=== PATIENT | male | born 1955 | race Caucasian/White ===

== ENCOUNTER 2018-10-28 19:42 | Inpatient (IN) ==
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
[2018-10-28 20:48] LABS: Hematocrit 36.9 % (42.0-52.0); Hemoglobin 11.8 gm/dL (13.5-18.0); Mean Cell Volume 90.7 fl (78-100); Mean Platelet Volume 9.6 fl (8-11.3); Neutrophil # 13.1 K/mm3 (1.3-6.0); Neutrophil % 87.3 % (42-75.0); Platelet Count 216 K/mm3 (150-450); Red Blood Count 4.07 M/mm3 (4.7-6.0); Red Cell Distribution Width 14.5 % (11.5-14.0)
[2018-10-28 20:58] LABS: Albumin * 2.4 gm/dl (3.4-5.0); Anion Gap 13.3 mmol/L (6.8-13.8); BUN/Creatinine Ratio 24.3 (9.0-21.6); Bilirubin, Total 1.7 mg/dL (0.0-1.1); Carbon Dioxide 28.4 mmol/L (24-32.6); Potassium 4.7 mmol/L (3.4-4.6); Total Protein 7.1 gm/dL (6.2-8.2)
[2018-10-28 23:49] LABS: Urine Appearance Cloudy (CLEAR); Urine Color Dark Yellow
[2018-10-28 23:50] LABS: Urine Bilirubin 1 mg/dl (NEGATIVE); Urine Blood 250 /ul (NEGATIVE); Urine Ketone Negative (NEGATIVE); Urine Nitrite Negative (NEGATIVE); Urine Protein 100 mg/dL (NEGATIVE); Urine Specific Gravity >=1.030 SP.GR. (1.005-1.030)
[2018-10-28 23:51] LABS: Urine Bacteria TRACE; Urine Fine Granular Cast TRACE /LPF; Urine Hyaline Cast TRACE /LPF
[2018-10-29] MEDS ORDERED: DIATRIZOATE MEGLUMINE, SODIUM 30 ML BTL PO ONE (00:11)
[2018-10-29] MEDS ORDERED: cefTRIAXone SODIUM 1,000 MG/100 ML BAG IV ONE (03:47)
[2018-10-29] MEDS ORDERED: NORMAL SALINE 1,000 ML IV PRN (04:22)
--- NOTE | 2018-10-29 07:09 | ANES ---
Anesthesia Procedure Note Procedure Note: ANESTHESIA PROCEDURE NOTE Date of procedure: 10/29/2018. Time of procedure: 06 50. Performed by: Hung Gallegos CRNA Bottle Tester: None . Preprocedure diagnosis: Sepsis. Difficult IV access. Post procedure diagnosis: Same. Procedure: IV start Indications: Difficult IV access. Findings: 22-gauge Angiocath IV started in patient's right foot EBL: Minimal. Fluids: N/A. Specimen: N/A. Post procedure condition: The patient tolerated the procedure well. No complications were noted. Thank you for this consultation Hung Gallegos CRNA
[2018-10-29] MEDS ORDERED: BISACODYL 10 MG SUPP.RECT RC PRN (07:20)
[2018-10-29] MEDS ORDERED: GLYCERIN 1 SUPP SUPP.RECT RC PRN (07:20)
[2018-10-29 07:57] LABS: Anion Gap 12.5 mmol/L (6.8-13.8); Calcium * 8.4 mg/dL (7.9-10.9); Carbon Dioxide 26.4 mmol/L (24-32.6); Potassium 4.9 mmol/L (3.4-4.6)
[2018-10-29] MEDS: CARVEDILOL 12.5 MG TABLET PO SCH ×2 (08:23→20:21)
[2018-10-29] MEDS: FOLIC ACID 1 MG TABLET PO SCH (08:23)
[2018-10-29] MEDS: FLECAINIDE ACETATE 100 MG TABLET PO SCH ×2 (08:23→20:22)
[2018-10-29] MEDS: DOCUSATE SODIUM 100 MG CAPSULE PO SCH (08:23)
[2018-10-29] MEDS: ACETAMINOPHEN 500 MG TABLET PO PRN ×2 (08:30→20:21)
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
[2018-10-29] MEDS ORDERED: SIMETHICONE 80 MG TAB.CHEW PO PRN (09:06)
[2018-10-29] MEDS: ALBUTEROL SULFATE/IPRATROPIUM 3 ML NEBU IH PRN ×2 (13:12→22:53)
[2018-10-30] MEDS: ACETAMINOPHEN 500 MG TABLET PO PRN (03:39)
[2018-10-30 06:11] LABS: Anion Gap 15.4 mmol/L (6.8-13.8); BUN/Creatinine Ratio 26.4 (9.0-21.6); Calcium * 8.2 mg/dL (7.9-10.9); Carbon Dioxide 23.6 mmol/L (24-32.6); Estimated Creat Clear 47.6
[2018-10-30] MEDS ORDERED: NORMAL SALINE 1,000 ML IV PRN (08:01)
--- NOTE | 2018-10-30 08:05 | PN ---
Subjective - Date and Time Seen Date: 10/30/18 Time: 08:58 Subjective Narrative: Patient reports feeling better than yesterday. He does not feel bloated, and no longer has upper chest discomfort. He feels less congested. He has been able to cough up some phlegm. He is eating without difficulty, and denies postprandial pain. He did notice some swelling in his legs. He feels like he may be able to have a bowel movement later this morning. Objective - Review of Systems Generalized/Overall Review: Denies: Fever Respiratory: Reports: Cough Cardiac: Reports: Edema. Denies: Chest Pain Abdominal: Denies: Vomiting, Diarrhea - Vitals Vitals: Last Vital Signs Temp 36.6 C 10/30/18 06:57 Pulse 79 10/30/18 06:57 Resp 18 10/30/18 06:57 BP 102/65 10/30/18 06:57 Pulse Ox 97 10/30/18 06:57 - Abnormal Lab Findings Abnormal Lab Findings: Abnormal Lab Results 10/29/18 10/30/18 Range/Units 07:08 05:30 Sodium 124 L (132-142) mmol/L Plasma Sodium 124 L (130-142) mmol/L Potassium 5.0 H (3.4-4.6) mmol/L Chloride 90 L (97-106) mmol/L Carbon Dioxide 23.6 L (24-32.6) mmol/L Anion Gap 15.4 H (6.8-13.8) mmol/L BUN 42 H D (6-23) mg/dL Creatinine 1.59 H D (0.4-1.4) mg/dL Est GFR (Non-Af Amer) 47 L D (60-130) mL/min BUN/Creatinine Ratio 26.4 H (9.0-21.6) Random Glucose 113 H (70-110) mg/dL Procalcitonin 2.00 H (0.05-0.50) ng/mL - Exam Constitutional: Present: Alert, Oriented x3, No distress Respiratory: Present: no respiratory distress. Absent: rhonchi Cardiovascular/Chest: Present: regular rate, rhythm Abdomen: Present: soft, nontender, negative Rodríguez sign Extremity: Present: other - tubigrips in place to the knees bilaterally. Absent: lower extremity edema Skin Exam: Present: other - large dressing over mid to lower back with mild strikethrough. Well healed scar visible above the dressing with continuous sutures in place Eye contact: Present: cooperative Assessment/Plan - Problems/Diagnosis (1) Bacteremia Problem: Acute Narrative: 2 blood cultures are positive for staph, sensitivity and speciation to follow. Today is day 3 of Rocephin, and will add doxycycline. He has been afebrile. Initial white blood cell count of 15, repeat pending for the morning. He reports feeling better overall. Likely secondary to pneumonia, but need to include wound infection in the differential. Wound consult pending. He had an injury in august and sustained multiple fractures, and required surgery. This hospitalization is sequela of that injury. He likely has been splinting, and developed pneumonia. (2) Pneumonia Problem: Acute Qualifiers: Pneumonia type: due to unspecified organism Qualified Code(s): J18.1 - Lobar pneumonia, unspecified organism Narrative: Improving. He does not feel as congested, and was able to wean from oxygen. Today is day #3 of rocephin, and adding doxycycline for for staph coverage. Blood cultures positive for staph. Has not been febrile since he was in the ED. (3) Hyponatremia Problem: Acute Narrative: Admission sodium of 126, and was 124 this morning. Will give him one L NS today, and recheck in the morning. His urine was very concentrated on admission, and he may not be excreting water. He does have an acute kidney injury today. If no improvement by tomorrow, will check urine osmolality. (4) Acute renal injury Problem: Acute Narrative: Creatinine of 1.59 this morning, up from 1.09 on admission. He admits to not drinking much fluids, and will give a liter of saline throughout the day. We will need to gently hydrate due to his history of CHF. Will hold his Lasix today. Recheck in a.m. (5) Constipation Problem: Acute Narrative: Continue Dulcolax, Colace, MiraLAX. Discontinue narcotics as they are likely the cause of his constipation. (6) Multiple pelvic fractures Problem: Acute Qualifiers: Encounter type: subsequent encounter Fracture type: closed Fracture alignment: with unstable disruption of pelvic ring Fracture healing: with routine healing Qualified Code(s): S32.811D - Multiple fractures of pelvis with unstable disruption of pelvic ring, subsequent encounter for fracture with routine healing Narrative: He reports doing well without narcotics. Continue pain control with tylenol. Continue working with PT. (7) Fracture of thoracic spine Problem: Acute Qualifiers: Encounter type: subsequent encounter Thoracic vertebra fracture level: unspecified thoracic vertebra Fracture type: closed Fracture morphology: unspecified fracture morphology Fracture healing: with routine healing Qualified Code(s): S22.009D - Unspecified fracture of unspecified thoracic vertebra, subsequent encounter for fracture with routine healing Narrative: Patient has sutures in place from previous surgery for the spinal fractures. He has a bandage over top, which has some strikethrough. Mariah Edin has been consulted for an appropriate dressing for his wound. He has a follow up appt n ext week with his surgeon. I spoke with his nurse at [facility], who had been using AUDRA and a telfa dressing. He saw his surgeon a couple of weeks ago, and his incision was still inflamed, which is likely why his sutures are still in place. (8) Multiple rib fractures involving four or more ribs Problem: Acute (9) Paroxysmal a-fib Problem: Chronic Narrative: Currently in sinus rhythm. (10) CHF (congestive heart failure) Problem: Chronic Qualifiers: Heart failure type: combined systolic and diastolic Heart failure chronicity: chronic Qualified Code(s): I50.42 - Chronic combined systolic (congestive) and diastolic (congestive) heart failure Narrative: Continue coreg. Holding lasix for CAYDEN. Monitor closely for signs of fluid overload. (11) Abnormal US (ultrasound) of abdomen Problem: Acute Narrative: Ultrasound of his GB showed "GALLSTONES WITH GALLBLADDER WALL THICKENING AND POSITIVE RODRÍGUEZ SIGN WITHOUT OBVIOUS PERICHOLECYSTIC FLUID. THESE FINDINGS ARE CONCERNING FOR ACUTE CHOLECYSTITIS." He denies RUQ pain or postprandial pain. He had some upper throat discomfort yesterday, but that is no longer present. These findings are likely incidental. No further intervention needed,.
[2018-10-30] MEDS: FUROSEMIDE 20 MG TABLET PO SCH (08:10)
[2018-10-30] MEDS: CARVEDILOL 12.5 MG TABLET PO SCH ×2 (08:29→21:13)
[2018-10-30] MEDS: FLECAINIDE ACETATE 100 MG TABLET PO SCH ×2 (08:30→21:14)
[2018-10-30] MEDS: DOXYCYCLINE HYCLATE 100 MG TABLET PO SCH ×2 (08:30→21:14)
[2018-10-30] MEDS: DOCUSATE SODIUM 100 MG CAPSULE PO SCH (08:30)
[2018-10-30] MEDS: FOLIC ACID 1 MG TABLET PO SCH (08:31)
[2018-10-30] MEDS: POLYETHYLENE GLYCOL 3350 119 GM BTL PO PRN (08:32)
--- NOTE | 2018-10-30 14:29 | CONS ---
[facility] - General Date of Service: 10/30/18 Source: patient, family Exam Limitations: no limitations - History of Present Illness Initial Comments: Patient is a 63 year old male, recently admitted to the hospital for treatment of pneumonia. 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 He was treated at the [facility], and recently returned to the [facility] to complete healing. This consult is in regards to the incision of the thoracic spine. There is continued drainage and redness present. The patient has pain throughout. Current dressings include dry gauze. The patient denies prior non-healing wounds. Timing/Duration: constant Allergies/Adverse Reactions: Allergies No Known Allergies Allergy (Verified 10/29/18 07:31) Home Medications: Home Medications Medication Instructions Recorded Last Taken Acetaminophen 3 tab PO TID 10/25/18 Unknown Acetaminophen [Tylenol] 500 mg PO TID PRN 10/25/18 Unknown Allopurinol [Zyloprim] 300 mg PO DAILY 10/25/18 Unknown Aspirin [Aspirin EC] 81 mg PO DAILY 10/25/18 Unknown Atorvastatin Calcium [Lipitor] 20 mg PO HS 10/25/18 Unknown Bisacodyl [Dulcolax Suppository] 10 mg RC DAILY PRN 10/25/18 Unknown Calcium Carbonate [Tums] 1 - 2 tab PO QID PRN 10/25/18 Unknown Carvedilol [Coreg] 12.5 mg PO BID 10/25/18 Unknown Docusate Sodium 100 mg PO DAILY 10/25/18 Unknown Flecainide Acetate 100 mg PO BID 10/25/18 Unknown Folic Acid 1 mg PO DAILY 10/25/18 Unknown Furosemide 60 mg PO DAILY 10/25/18 Unknown Glycerin [Glycerin Adult 1 supp RC DAILY PRN 10/25/18 Unknown Suppository] HYDROmorphone HCL [Dilaudid] 1 - 2 tab PO Q6H PRN 10/25/18 Unknown Ipratropium/Albuterol Sulfate 3 ml INHALATION Q6H PRN 10/25/18 Unknown [Iprat-Albut 0.5-3(2.5) mg/3 ml] Polyethylene Glycol 3350 [Miralax] 17 gm PO DAILY PRN 10/25/18 Unknown Potassium Chloride [Klor-Con 10] 10 meq PO DAILY 10/25/18 Unknown Ciprofloxacin HCl [Cipro] 500 mg PO BID #20 tab 10/26/18 Unknown Procedures Continuous invasive mechanical ventilation for less than 96 consecutive hours (04/07/11) Dilation of Urethra, Via Natural or Artificial Opening Endoscopic (02/23/16) Drainage of Bladder with Drainage Device, Via Natural or Artificial Opening (02/23/16) Drainage of Bladder with Drainage Device, Via Natural or Artificial Opening Endoscopic (05/31/16) Drainage of Peritoneal Cavity, Percutaneous Approach, Diagnostic (05/31/16) Drainage of Prostate, Percutaneous Approach, Diagnostic (02/23/16) Fluoroscopy of Kidneys, Ureters and Bladder (02/23/16) Insertion of endotracheal tube (04/07/11) Insertion of intraocular lens prosthesis at time of cataract extraction, one- stage (08/08/13) Phacoemulsification and aspiration of cataract (08/08/13) Medications - Medications Current Medications: Current Medications Acetaminophen (Tylenol) 500 mg PO TID PRN PRN Reason: Pain Stop: 11/28/18 07:21 Last Admin: 10/30/18 03:39 Dose: 500 mg Documented by: Albuterol/Ipratropium (Duoneb 2.5-0.5mg/3ml Soln) 3 ml IH Q6H PRN PRN Reason: Wheezing Stop: 11/28/18 07:21 Last Admin: 10/29/18 22:53 Dose: 3 ml Documented by: Carvedilol (Coreg) 12.5 mg PO BID [facility] Stop: 11/28/18 09:01 Last Admin: 10/30/18 08:29 Dose: 12.5 mg Documented by: Docusate Sodium (Colace) 100 mg PO DAILY [facility] Stop: 11/28/18 09:01 Last Admin: 10/30/18 08:30 Dose: 100 mg Documented by: Doxycycline Hyclate (Vibratab) 100 mg PO BID [facility]; Protocol Stop: 11/04/18 09:01 Last Admin: 10/30/18 08:30 Dose: 100 mg Documented by: Flecainide Acetate (Tambocor) 100 mg PO BID [facility] Stop: 11/28/18 09:01 Last Admin: 10/30/18 08:30 Dose: 100 mg Documented by: Folic Acid (Folic Acid) 1 mg PO DAILY [facility] Stop: 11/28/18 09:01 Last Admin: 10/30/18 08:31 Dose: 1 mg Documented by: Furosemide (Lasix) 60 mg PO DAILY [facility] Stop: 11/29/18 09:01 Last Admin: 10/30/18 08:10 Dose: Not Given Documented by: Sodium Chloride (Sodium Chloride 0.9%) 1,000 mls @ 999 mls/hr IV .Q1H1M PRN PRN Reason: HYDRATION Last Infusion: 10/29/18 08:37 Dose: Infused Documented by: Ceftriaxone Sodium 1,000 mg/ (Dextrose/Water) 100 mls @ 200 mls/hr IV Q24H [facility]; Protocol Stop: 11/29/18 07:01 Last Admin: 10/30/18 07:36 Dose: 200 mls/hr Documented by: Sodium Chloride (Sodium Chloride 0.9%) 1,000 mls @ 140 mls/hr IV .Q7H9M PRN PRN Reason: hyponatremia Last Admin: 10/30/18 08:28 Dose: 140 mls/hr Documented by: Polyethylene Glycol (Miralax) 17 gm PO DAILY PRN PRN Reason: Constipation Last Admin: 10/30/18 08:32 Dose: 17 gm Documented by: Simethicone (Mylicon Chewable Tablets) 80 mg PO QID PRN PRN Reason: Indigestion Stop: 11/28/18 09:07 Last Admin: 10/29/18 11:28 Dose: 80 mg Documented by: Review of Systems - Review of Systems Generalized/Overall Review: Present: Weakness Respiratory: Present: Cough, Shortness of Breath, Wheezing Cardiac: Absent: Chest Pain Abdominal: Absent: Nausea Musculoskeletal: Absent: Back Pain Skin: Present: Lesions Physical Examination - Exam Vital Signs: Vital Signs - Last Taken Temp 36.4 C 10/30/18 11:05 Pulse 70 10/30/18 11:05 Resp 18 10/30/18 11:05 BP 97/61 10/30/18 11:05 Pulse Ox 92 L 10/30/18 11:05 O2 Oxygen Delivery Method Room Air Constitutional: Present: Alert, Oriented x3, Cooperative, No distress ENT Exam: Present: hearing grossly normal Respiratory: Present: no respiratory distress Skin Exam: Present: normal color, warm/dry, other - there are sutures present in the mid back. these are intact, with wound edges appropriated nicely. there are several areas of minimal drainage from the site, with purulent materal at the distal aspect. Eye contact: Present: cooperative Thoughts: Present: normal thought pattern - Results and Findings: Lab/Microbiology results last 24 hrs: Abnormal/Pending Laboratory Last 24 HRS 10/30/18 05:30 Sodium 124 L Plasma Sodium 124 L Potassium 5.0 H Chloride 90 L Carbon Dioxide 23.6 L Anion Gap 15.4 H BUN 42 H D Creatinine 1.59 H D Est GFR (Non-Af Amer) 47 L D BUN/Creatinine Ratio 26.4 H Random Glucose 113 H Culture 10/29/18 04:00 Blood Culture - Preliminary Blood Staphylococcus Species 10/28/18 20:30 Blood Culture - Preliminary Blood Staphylococcus Species 10/29/18 10:09 - Final Nares MRSA Negative - Assessments/Findings (1) Fracture of thoracic spine Diagnosis(s): Due to the drainage from the incision, recommend placing Aquacel Ag over the sutures. This will be covered with gauze and secured with tape. The dressing can be changed daily. Continue to monitor for signs of infection. The purulent material at the distal aspect is minimal, however concerning based on the recent culture results. Problem: Chronic Qualifiers: Encounter type: subsequent encounter Thoracic vertebra fracture level: unspecified thoracic vertebra Fracture type: closed Fracture morphology: unspecified fracture morphology Fracture healing: with routine healing Qualified Code(s): S22.009D - Unspecified fracture of unspecified thoracic vertebra, subsequent encounter for fracture with routine healing (2) Incisional infection Problem: Acute
[2018-10-30] MEDS: ALBUTEROL SULFATE/IPRATROPIUM 3 ML NEBU IH PRN (21:30)
[2018-10-31] MEDS ORDERED: hydrOXYzine HCL 25 MG TABLET PO ONE (01:10)
[2018-10-31] MEDS: ALBUTEROL SULFATE/IPRATROPIUM 3 ML NEBU IH PRN (04:23)
[2018-10-31 05:38] LABS: Calcium * 8.2 mg/dL (7.9-10.9); Carbon Dioxide 24.9 mmol/L (24-32.6); Potassium 4.9 mmol/L (3.4-4.6)
[2018-10-31 05:41] LABS: Hematocrit 31.8 % (42.0-52.0); Hemoglobin 10.2 gm/dL (13.5-18.0); Mean Cell Volume 88.1 fl (78-100); Mean Corpuscular Hemoglobin 28.3 pg (27-31); Mean Corpuscular Hgb Conc 32.1 g/dl (32-36); Mean Platelet Volume 9.9 fl (8-11.3); Neutrophil # 14.8 K/mm3 (1.3-6.0); Neutrophil % 88.2 % (42-75.0); Platelet Count 221 K/mm3 (150-450); Red Blood Count 3.61 M/mm3 (4.7-6.0); White Blood Count 16.8 K/mm3 (4.0-10.5)
[2018-10-31] MEDS: VANCOMYCIN HCL 1 GM in DEXTROSE 5 % IN WATER 250 ML IV SCH ×4 (08:06→20:40)
[2018-10-31] MEDS: DOXYCYCLINE HYCLATE 100 MG TABLET PO SCH ×2 (08:10→20:53)
[2018-10-31] MEDS: FUROSEMIDE 20 MG TABLET PO SCH (08:10)
[2018-10-31] MEDS: FOLIC ACID 1 MG TABLET PO SCH (08:11)
[2018-10-31] MEDS: DOCUSATE SODIUM 100 MG CAPSULE PO SCH (08:11)
[2018-10-31] MEDS: CARVEDILOL 12.5 MG TABLET PO SCH ×2 (08:11→20:50)
[2018-10-31] MEDS: FLECAINIDE ACETATE 100 MG TABLET PO SCH ×2 (08:11→20:50)
--- NOTE | 2018-10-31 10:11 | PN ---
Subjective - Date and Time Seen Date: 10/31/18 Time: 10:10 Subjective Narrative: Patient reports continued cough, and the cough is interfering with sleeping. His cough is productive. I got a call from nursing overnight stating he was somewhat anxious due to his cough, and he received hydroxyzine, and he believes this may have helped him sleep. He denies back pain. He did have a bowel movement yesterday. He reports feeling poorly overall due to his cough, and the mucinex was only minimally helpful. He was restarted on nasal cannula overnight for decreased oxygen readings via pulse ox. Objective - Review of Systems Generalized/Overall Review: Denies: Fever Respiratory: Reports: Cough. Denies: Shortness of Breath Cardiac: Reports: Edema. Denies: Chest Pain Abdominal: Denies: Vomiting, Abdominal Pain, Constipation Musculoskeletal Complaints: Denies: Back Pain - Vitals Vitals: Last Vital Signs Temp 36.6 C 10/31/18 07:16 Pulse 76 10/31/18 08:11 Resp 20 10/31/18 07:16 BP 112/72 10/31/18 08:11 Pulse Ox 95 10/31/18 07:16 - Abnormal Lab Findings Abnormal Lab Findings: Abnormal Lab Results 10/31/18 10/31/18 Range/Units 05:25 05:25 WBC 16.8 H (4.0-10.5) K/mm3 RBC 3.61 L (4.7-6.0) M/mm3 Hgb 10.2 L (13.5-18.0) gm/dL Hct 31.8 L (42.0-52.0) % RDW 15.0 H (11.5-14.0) % Immature Gran % (Auto) 0.80 H (0.001-0.429) % Immature Gran # (Auto) 0.13 H (0.000-0.0310) K/mm3 Neutrophils % 88.2 H (42-75.0) % Lymphocytes % 4.8 L (20-51) % Neutrophils # 14.8 H (1.3-6.0) K/mm3 Lymphocytes # 0.81 L (1.5-3.5) k/mm3 Sodium 123 L (132-142) mmol/L Plasma Sodium 123 L (130-142) mmol/L Potassium 4.9 H (3.4-4.6) mmol/L Chloride 90 L (97-106) mmol/L BUN 54 H (6-23) mg/dL Est GFR (Non-Af Amer) 57 L D (60-130) mL/min BUN/Creatinine Ratio 40.0 H (9.0-21.6) - Exam Constitutional: Present: Alert, Oriented x3, No distress - appears uncomfortable Respiratory: Present: lungs clear, no respiratory distress Cardiovascular/Chest: Present: regular rate, rhythm Abdomen: Present: soft, nontender Extremity: Present: other - tubigrips in place. Absent: lower extremity edema Skin Exam: Present: other - mild thick purulent drainage of incision in the regions of T10-T12, and L2-L3 Assessment/Plan - Problems/Diagnosis (1) MRSA bacteremia Problem: Acute Narrative: Cultures from 10/28/18 are growing MRSA. vancomycin added this morning. He does not appear acutely ill, making MRSA pneumonia unlikely. This infection is probably coming from his surgical incision. Surgery was done in August for thoracic fractures. MRI of the thoracic and lumbar spine pending to assess for osteomyelitis. Should this be positive, he will require transfer for possible surgery. (2) Pneumonia Problem: Acute Qualifiers: Pneumonia type: due to unspecified organism Qualified Code(s): J18.1 - Lobar pneumonia, unspecified organism Narrative: He continues to have a cough, and is requiring oxygen. Repeat chest x-ray pending. White blood cell count did increase slightly from admission, which may be from pneumonia or could be from his skin infection. We will continue Rocephin and doxycycline for now. Continue Mucinex. (3) Hyponatremia Problem: Acute Narrative: His sodium decreased from 124-123, even after a liter of fluids yesterday. Will administer 3% saline, and recheck BMP this afternoon. Renal function did recover yesterday. (4) Incisional infection Problem: Acute Narrative: Vancomycin started this morning. Has also been on rocephin and doxycycline, but WBC increased slightly. (5) Acute renal injury Problem: Resolved Narrative: Creatinine and GFR improved to 1.35 and 57, respectively. (6) Constipation Problem: Chronic Narrative: Not currently present. He was able to have a bowel movement yesterday. We will need to watch for constipation, that this was his presenting complaint. Likely secondary to narcotic use for his multiple spinal fractures. (7) Fracture of thoracic spine Problem: Acute Qualifiers: Encounter type: subsequent encounter Thoracic vertebra fracture level: unspecified thoracic vertebra Fracture type: closed Fracture morphology: unspecified fracture morphology Fracture healing: with routine healing Qualified Code(s): S22.009D - Unspecified fracture of unspecified thoracic vertebra, subsequent encounter for fracture with routine healing Narrative: Patient had surgical repair of thoracic fractures after a fall from a truck back in August. Surgery was done in . He still has sutures in place, and conversation with his nurse at [facility] indicated there was some concern for continued wound drainage at his last visit. There is concern for osteomyelitis given his bacteremia. MRI of the T and L-spine pending. (8) Multiple pelvic fractures Problem: Acute Qualifiers: Encounter type: subsequent encounter Fracture type: closed Fracture alignment: with unstable disruption of pelvic ring Fracture healing: with routine healing Qualified Code(s): S32.811D - Multiple fractures of pelvis with unstable disruption of pelvic ring, subsequent encounter for fracture with routine healing (9) Multiple rib fractures involving four or more ribs Problem: Acute (10) Paroxysmal a-fib Problem: Chronic Narrative: NSR on admission EKG. (11) CHF (congestive heart failure) Problem: Chronic Qualifiers: Heart failure type: combined systolic and diastolic Heart failure chronicity: chronic Qualified Code(s): I50.42 - Chronic combined systolic (congestive) and diastolic (congestive) heart failure Narrative: Tolerated 1 L NS given throughout the day yesterday. No crackles or edema on this morning's exam. (12) Abnormal US (ultrasound) of abdomen Problem: Acute Narrative: He denies symptoms of cholecystitis. The findings on his ultrasound are likely incidental.
[2018-10-31] MEDS: SODIUM CHLORIDE 3 % 500 ML IV SCH (10:28)
[2018-10-31] MEDS: ACETAMINOPHEN 500 MG TABLET PO PRN ×2 (13:53→20:50)
[2018-10-31] MEDS ORDERED: BENZONATATE 100 MG CAPSULE PO PRN (14:35)
[2018-10-31 14:46] LABS: Calcium * 8.3 mg/dL (7.9-10.9); Carbon Dioxide 22.8 mmol/L (24-32.6); Estimated Creat Clear 61.5; Potassium 4.8 mmol/L (3.4-4.6)
[2018-11-01 05:46] LABS: Hematocrit 31.9 % (42.0-52.0); Hemoglobin 10.4 gm/dL (13.5-18.0); Mean Cell Volume 87.6 fl (78-100); Mean Corpuscular Hemoglobin 28.6 pg (27-31); Mean Corpuscular Hgb Conc 32.6 g/dl (32-36); Mean Platelet Volume 9.9 fl (8-11.3); Neutrophil # 12.2 K/mm3 (1.3-6.0); Neutrophil % 88.3 % (42-75.0); Platelet Count 234 K/mm3 (150-450); Red Blood Count 3.64 M/mm3 (4.7-6.0); Red Cell Distribution Width 14.9 % (11.5-14.0); White Blood Count 13.8 K/mm3 (4.0-10.5)
[2018-11-01 05:59] LABS: Anion Gap 12.9 mmol/L (6.8-13.8); BUN/Creatinine Ratio 49.6 (9.0-21.6); Bilirubin, Total 1.4 mg/dL (0.0-1.1); Ca. Corrected For Albumin 9.5 mg/dL (8.4-10.2); Calcium * 8.2 mg/dL (7.9-10.9); Carbon Dioxide 24.7 mmol/L (24-32.6); Potassium 4.6 mmol/L (3.4-4.6); Total Protein 6.3 gm/dL (6.2-8.2)
--- NOTE | 2018-11-01 09:20 | PN ---
Subjective - Date and Time Seen Date: 11/01/18 Time: 09:20 Subjective Narrative: He continue to have the cough, and feels like he is getting weaker overall. Objective - Vitals Vitals: Last Vital Signs Temp 36.6 C 11/01/18 06:00 Pulse 72 11/01/18 06:00 Resp 18 11/01/18 06:00 BP 130/80 11/01/18 06:00 Pulse Ox 96 11/01/18 06:00 - Abnormal Lab Findings Abnormal Lab Findings: Abnormal Lab Results 10/31/18 11/01/18 11/01/18 Range/Units 14:16 05:25 05:25 WBC 13.8 H (4.0-10.5) K/mm3 RBC 3.64 L (4.7-6.0) M/mm3 Hgb 10.4 L (13.5-18.0) gm/dL Hct 31.9 L (42.0-52.0) % RDW 14.9 H (11.5-14.0) % Immature Gran % (Auto) 1.00 H (0.001-0.429) % Immature Gran # (Auto) 0.14 H (0.000-0.0310) K/mm3 Neutrophils % 88.3 H (42-75.0) % Lymphocytes % 5.0 L (20-51) % Neutrophils # 12.2 H (1.3-6.0) K/mm3 Lymphocytes # 0.69 L (1.5-3.5) k/mm3 Sodium 123 L 123 L (132-142) mmol/L Plasma Sodium 124 L 123 L (130-142) mmol/L Potassium 4.8 H (3.4-4.6) mmol/L Chloride 89 L 90 L (97-106) mmol/L Carbon Dioxide 22.8 L (24-32.6) mmol/L Anion Gap 16.0 H (6.8-13.8) mmol/L BUN 59 H 57 H (6-23) mg/dL BUN/Creatinine Ratio 48.0 H 49.6 H (9.0-21.6) Random Glucose 132 H (70-110) mg/dL Total Bilirubin 1.4 H (0.0-1.1) mg/dL AST 63 H (0-48) U/L Alkaline Phosphatase 221 H (50-170) U/L Albumin 2.0 L (3.4-5.0) gm/dl Assessment/Plan - Problems/Diagnosis (1) MRSA bacteremia Problem: Acute (2) Pneumonia Problem: Acute Qualifiers: Pneumonia type: due to unspecified organism Qualified Code(s): J18.1 - Lobar pneumonia, unspecified organism (3) Hyponatremia Problem: Acute (4) Incisional infection Problem: Acute (5) Acute renal injury Problem: Resolved (6) Constipation Problem: Chronic (7) Fracture of thoracic spine Problem: Acute Qualifiers: Encounter type: subsequent encounter Thoracic vertebra fracture level: unspecified thoracic vertebra Fracture type: closed Fracture morphology: unspecified fracture morphology Fracture healing: with routine healing Qualified Code(s): S22.009D - Unspecified fracture of unspecified thoracic vertebra, subsequent encounter for fracture with routine healing (8) Multiple pelvic fractures Problem: Acute Qualifiers: Encounter type: subsequent encounter Fracture type: closed Fracture alignment: with unstable disruption of pelvic ring Fracture healing: with routine healing Qualified Code(s): S32.811D - Multiple fractures of pelvis with unstable disruption of pelvic ring, subsequent encounter for fracture with routine healing (9) Multiple rib fractures involving four or more ribs Problem: Acute (10) Paroxysmal a-fib Problem: Chronic (11) CHF (congestive heart failure) Problem: Chronic Qualifiers: Heart failure type: combined systolic and diastolic Heart failure chronicity: chronic Qualified Code(s): I50.42 - Chronic combined systolic (congestive) and diastolic (congestive) heart failure (12) Abnormal US (ultrasound) of abdomen Problem: Acute
[2018-11-01] MEDS: predniSONE 20 MG TABLET PO SCH (10:25)
[2018-11-01] MEDS: FUROSEMIDE 20 MG TABLET PO SCH (10:25)
[2018-11-01] MEDS: DOCUSATE SODIUM 100 MG CAPSULE PO SCH (10:26)
[2018-11-01] MEDS: FOLIC ACID 1 MG TABLET PO SCH (10:26)
[2018-11-01] MEDS: FLECAINIDE ACETATE 100 MG TABLET PO SCH ×2 (10:26→20:17)
[2018-11-01] MEDS: CARVEDILOL 12.5 MG TABLET PO SCH ×2 (10:27→20:16)
[2018-11-01] MEDS: DOXYCYCLINE HYCLATE 100 MG TABLET PO SCH ×2 (10:27→20:18)
[2018-11-01] MEDS: ENOXAPARIN SODIUM 40 MG/0.4 ML SYRG SC SCH (10:28)
--- NOTE | 2018-11-01 10:48 | DS ---
Transfer Discharge Summary - Diagnosis(s)/Problems (1) MRSA bacteremia Narrative: Blood cultures on admission were positive for MRSA, and vancomycin was subsequently started. Unfortunately, patient has very difficult IV access, and access was lost overnight of 10/31. The source is felt to be his spinal in cision. MRI of his T and L spine read "Questionable abnormal signal enhancement in the L5 vertebral body; however, no other abnormal signal seen in this vertebral body. This may be artifactual. Edematous signal at T11-T12 identified; however, there is no abnormal contrast enhancement in this region, therefore I believe this is degenerative in nature. Soft tissues are unremarkable." Problem: Acute (2) Surgical wound infection Narrative: He had thoracic spine fracture surgically repaired at the [facility] in August 2018, but these notes are not available to me. Per his nurse at the care center where he is currently residing, there was concern for wound dehiscence, and sutures are still in place. He has mild purulent drainage in the regions of T10-T12, and L2-L3. He denies pain in the region. He was given rocephin initially for the pneumonia, which started 10/28. Doxycyline was added 10/30, and vancomycin for the positive blood culture was added 10/31. Wound care was consulted, who recommended covering the sutures with Aquacel Ag. MRI of his T and L spine were done, which read "FINDINGS: No abnormal signal within the cord. Conus ends in normal anatomic fashion. Extensive surgical hardware limits evaluation of the spine. Questionable abnormal signal enhancement in the L5 vertebral body; however, no other abnormal signal seen in this vertebral body. This may be artifactual. If concern persists, consider 3 phase nuclear medicine bone scan with Ceretec study. Surgical hardware at L5-S1 limits evaluation. Multilevel disc bulging and osteophyte complex causing central canal and neural foraminal stenosis which is mild at multiple levels. No abnormal contrast enhancement otherwise. No fracture or dislocation appreciated. Edematous signal at T11-T12 identified; however, there is no abnormal contrast enhancement in this region, therefore I believe this is degenerative in nature. Soft tissues are unremarkable." ESR mildly elevated at 47. He was no longer febrile after arrival on the floor. Vitals were within normal limits. Problem: Chronic (3) Pneumonia Narrative: Patient had a cough throughout his stay, and was initially febrile while in the ED. CXR showed atelectasis or scarring in his bases without definite infiltrate. WBC of 15.0, improved to 13.8, procalcitonin of 2.0. Given his clinical presentation, he was treated with rocephin and doxycycline. He initially did require up to 2L O2 via NC, and was weaned, but again used oxygen overnight of 10/31/18. On 11/01, chest CT showed "No definite pulmonary consolidation. Bilateral basilar predominant dependent/compressive atelectasis. Potential pneumonia would be difficult in exclude entirely." He was started on 60 mg prednisone on 11/01. His cough improved by 11/02. Doxycycline and rocephin discontinued 11/03 for completion of treatment. Problem: Acute (4) Hyponatremia Narrative: Initial sodium level of 126. He was given one L NS, and repeat was 125. He was then started on 3% hypertonic saline, and his sodium decreased to 123. Oral salt tablets were started. His sodium level improved to 130 on 11/02, and the 3% saline was stopped, continuing salt tabs. Problem: Acute (5) Acute renal injury Narrative: On 10/30, his creatinine increased from 1.08 to 1.59. It decreased the next day, and remained normal for the rest of his stay. Problem: Resolved (6) Constipation Narrative: Patient reported constipation prior to admission, worsened with pain medications. These were held during his stay, and he did not have problems with bowel movements. Problem: Chronic (7) Fracture of thoracic spine Narrative: Patient suffered a traumatic injury in August 2018, sustaining multiple fractures. His T spine fractures required surgical repair. He still has sutures in place, and discussion with his nurse at [facility] revealed there was recent concern for wound dehiscence. Problem: Chronic (8) Multiple pelvic fractures Narrative: Patient reports having a 20% weight bearing restriction on his right leg. He states he doesn't currently feel pain when he steps on that leg, but is afraid of reversing his progress. Problem: Chronic (9) Multiple rib fractures involving four or more ribs Problem: Chronic (10) Paroxysmal a-fib Narrative: He was in normal sinus rhythm. Problem: Chronic (11) CHF (congestive heart failure) Narrative: Gentle fluids were administered for his hyponatremia, and he did not have signs of fluid overload. Continued home coreg. Problem: Chronic (12) Abnormal US (ultrasound) of abdomen Narrative: He had a CT of his abdomen in the ED, which showed "calcified gallstones with questionable gallbladder wall thickening." Subsequent US showed "gallstones with gallbladder wall thickening and positive Rodríguez sign without obvious pericholecystic fluid. Findings concerning for acute cholecystitis." These findings were felt to be incidental. He did not have RUQ tenderness on exam, and did not have postprandial pain. AST, ALT normal. His alk phos was elevated, which is likely secondary to MSK surgery. Problem: Chronic - Course Description of Stay: Patient is a resident of [facility] due to injuries sustained in a fall from a truck in August 2018, requiring surgical repair of his spine. He was initially admitted for constipation, but had respiratory complaints. He had a cough, was febrile, and required oxygen, which he does not use at baseline. He was treated for pneumonia. He also has drainage of the incision of his back, and blood cultures were positive for MRSA. His case was discussed with the infectious disease specialist at [facility], who recommended a higher level of care due to the MRSA bacteremia. There was no clear osteomyelitis on MRI, and with his ESR of 47, it is less likely. He also had hyponatremia of unknown source, which did not improve with one L NS, and 3% hypertonic solution was started, again without improvement. Oral salt tablets were started. Unfortunately IV access was lost overnight 10/31, regained around noon 11/01. His sodium improved to 130 on 11/02, and the 3% was stopped.. Patient's WBC count improved, but his cough did not for several days. CXR did not show definite infiltrate, and CT chest was equivocal. He was weaned off oxygen, but again required 2L via NC on the night of 10/30. He was again weaned by 11/01. Of note, there was significant difficulty with IV access. He had peripheral access in his right foot for the first few days of admission, but this was lost overnight on 10/31. He has not yet had negative blood cultures, and peripheral access was again established by anesthesia. He completed 5 days of treatment with rocephin, and his final dose of doxycycline was scheduled to be given the night of transfer to [facility]. A bed became available the afternoon of 11/03/18, and he was transferred by ground to the [facility] Procedures Performed: none - Results and Findings Results and Findings: Laboratory Results - last 24 hr 10/31/18 11/01/18 11/01/18 14:16 05:25 05:25 WBC 13.8 H RBC 3.64 L Hgb 10.4 L Hct 31.9 L MCV 87.6 MCH 28.6 MCHC 32.6 RDW 14.9 H Plt Count 234 MPV 9.9 Immature Gran % (Auto) 1.00 H Immature Gran # (Auto) 0.14 H Neutrophils % 88.3 H Lymphocytes % 5.0 L Monocytes % 5.3 Eosinophils % 0.3 Basophils % 0.1 Nucleated RBC % 0.0 Neutrophils # 12.2 H Lymphocytes # 0.69 L Monocytes # 0.7 Eosinophils # 0.0 Absolute Basophils 0.0 ESR Sodium 123 L 123 L Plasma Sodium 124 L 123 L Potassium 4.8 H 4.6 Chloride 89 L 90 L Carbon Dioxide 22.8 L 24.7 Anion Gap 16.0 H 12.9 BUN 59 H 57 H Creatinine 1.23 1.15 Est GFR (Non-Af Amer) 63 68 BUN/Creatinine Ratio 48.0 H 49.6 H Random Glucose 132 H 105 Calcium 8.3 8.2 Calcium Adj for Albumin 9.5 Total Bilirubin 1.4 H AST 63 H ALT 51 Alkaline Phosphatase 221 H Total Protein 6.3 Albumin 2.0 L 11/01/18 05:25 WBC RBC Hgb Hct MCV MCH MCHC RDW Plt Count MPV Immature Gran % (Auto) Immature Gran # (Auto) Neutrophils % Lymphocytes % Monocytes % Eosinophils % Basophils % Nucleated RBC % Neutrophils # Lymphocytes # Monocytes # Eosinophils # Absolute Basophils ESR 47 H Sodium Plasma Sodium Potassium Chloride Carbon Dioxide Anion Gap BUN Creatinine Est GFR (Non-Af Amer) BUN/Creatinine Ratio Random Glucose Calcium Calcium Adj for Albumin Total Bilirubin AST ALT Alkaline Phosphatase Total Protein Albumin - Medications Medications: Active Medications Acetaminophen (Tylenol) 500 mg PO TID PRN PRN Reason: Pain Stop: 11/28/18 07:21 Last Admin: 10/31/18 20:50 Dose: 500 mg Documented by: Albuterol/Ipratropium (Duoneb 2.5-0.5mg/3ml Soln) 3 ml IH Q6H PRN PRN Reason: Wheezing Stop: 11/28/18 07:21 Last Admin: 10/31/18 04:23 Dose: 3 ml Documented by: Carvedilol (Coreg) 12.5 mg PO BID [facility] Stop: 11/28/18 09:01 Last Admin: 11/01/18 10:27 Dose: 12.5 mg Documented by: Docusate Sodium (Colace) 100 mg PO DAILY [facility] Stop: 11/28/18 09:01 Last Admin: 11/01/18 10:26 Dose: 100 mg Documented by: Doxycycline Hyclate (Vibratab) 100 mg PO BID [facility]; Protocol Stop: 11/04/18 09:01 Last Admin: 11/01/18 10:27 Dose: 100 mg Documented by: Enoxaparin Sodium (Lovenox) 40 mg SC Q24H [facility] Stop: 12/01/18 09:31 Last Admin: 11/01/18 10:28 Dose: 40 mg Documented by: Flecainide Acetate (Tambocor) 100 mg PO BID [facility] Stop: 11/28/18 09:01 Last Admin: 11/01/18 10:26 Dose: 100 mg Documented by: Folic Acid (Folic Acid) 1 mg PO DAILY [facility] Stop: 11/28/18 09:01 Last Admin: 11/01/18 10:26 Dose: 1 mg Documented by: Furosemide (Lasix) 60 mg PO DAILY [facility] Stop: 11/29/18 09:01 Last Admin: 11/01/18 10:25 Dose: 60 mg Documented by: Guaifenesin (Mucinex) 600 mg PO BID [facility] Stop: 11/29/18 21:01 Last Admin: 11/01/18 10:27 Dose: 600 mg Documented by: Sodium Chloride (Sodium Chloride 0.9%) 1,000 mls @ 999 mls/hr IV .Q1H1M PRN PRN Reason: HYDRATION Last Infusion: 10/29/18 08:37 Dose: Infused Documented by: Ceftriaxone Sodium 1,000 mg/ (Dextrose/Water) 100 mls @ 200 mls/hr IV Q24H [facility]; Protocol Stop: 11/29/18 07:01 Last Infusion: 10/31/18 07:53 Dose: Infused Documented by: Sodium Chloride (Sodium Chloride 0.9%) 1,000 mls @ 140 mls/hr IV .Q7H9M PRN PRN Reason: hyponatremia Last Infusion: 10/30/18 16:05 Dose: Infused Documented by: Vancomycin HCl 1 gm/ Dextrose/ (Water) 250 mls @ 140 mls/hr IV Q12H [facility]; Protocol Stop: 11/30/18 07:01 Last Admin: 10/31/18 20:40 Dose: 140 mls/hr Documented by: Sodium Chloride (Hypertonic) (Sodium Chloride 3%) 500 mls @ 50 mls/hr IV .Q10H [facility] Stop: 11/30/18 09:01 Last Admin: 10/31/18 10:28 Dose: 30 mls/hr Documented by: Polyethylene Glycol (Miralax) 17 gm PO DAILY PRN PRN Reason: Constipation Last Admin: 10/30/18 08:32 Dose: 17 gm Documented by: Prednisone (Prednisone) 40 mg PO DAILY [facility] Stop: 11/06/18 09:16 Last Admin: 11/01/18 10:25 Dose: 40 mg Documented by: Simethicone (Mylicon Chewable Tablets) 80 mg PO QID PRN PRN Reason: Indigestion Stop: 11/28/18 09:07 Last Admin: 10/29/18 11:28 Dose: 80 mg Documented by: Discontinued Medications Diatrizoate Meglum/Diatrizoate Sod (Gastrografin Solution) 60 ml PO ONCE ONE Stop: 10/29/18 00:12 Last Admin: 10/29/18 00:16 Dose: 60 ml Documented by: Hydroxyzine HCl (Atarax) 25 mg PO ONCE ONE Stop: 10/31/18 01:11 Last Admin: 10/31/18 01:24 Dose: 25 mg Documented by: Ceftriaxone Sodium (Rocephin 1000 Mg Er Piggyback) 1,000 mg in 100 mls @ 200 mls/hr IV ONCE ONE Stop: 10/29/18 04:16 Last Infusion: 10/29/18 07:13 Dose: Infused Documented by: - Disposition Disposition: Short Term Hospital Inpatient Condition: Fair Discharge Date: 11/03/18
[2018-11-01] MEDS: SODIUM CHLORIDE 1 GM TABLET PO SCH ×2 (11:51→20:17)
--- NOTE | 2018-11-01 12:07 | ANES ---
Anesthesia Procedure Note Procedure Note: ANESTHESIA PROCEDURE NOTE Date of procedure: 11/01/2018. Time of procedure: 1150. Performed by: Hung Gallegos CRNA Explosive Man: None . Preprocedure diagnosis: Sepsis. Pneumonia. Difficult IV access. Post procedure diagnosis: Same. Procedure: IV start Indications: Difficult IV access. Findings: 22-gauge Angiocath IV started in patient's left wrist. EBL: Minimal. Fluids: N/A. Specimen: N/A. Post procedure condition: The patient tolerated the procedure well. No complications were noted. Thank you for this consultation Hung Gallegos CRNA
[2018-11-01] MEDS: VANCOMYCIN HCL 1 GM in DEXTROSE 5 % IN WATER 250 ML IV SCH ×2 (16:17)
[2018-11-01] MEDS: SODIUM CHLORIDE 3 % 500 ML IV SCH ×2 (17:00→18:02)
--- NOTE | 2018-11-01 18:28 | PN ---
Progess Note - Interim Date: 11/01/18 Time: 18:26 Narrative: 11/01/18 18:26 Patient reports continued cough. IV access lost overnight, but regained this afternoon by anesthesia. He reports feeling weaker. Continues to deny back pain. He feels like his feet are swollen. Morning Vitals: Temp 36.6, BP 130/80, HR 72, RR 18, 96% RA PE: Const: NAD, Resp: No increased effort, diminished lung sounds bilaterally, CV: HRRR, no murmur, Abd: soft, NT, Ext: trace bilateral lower extremity swelling, IV in right foot, tubigrips in place, Skin: Large longitudinal incision over spine with sutures in place, no active drainage visible, but some areas of purulence over approximately T11, L2, mild strikethrough of bandage A/P: MRSA bacteremia/incision infection - resume vancomycin. Discussed with ID at [facility], who recommend higher level of care. He has been accepted at the [facility], where his surgery was done, awaiting bed. Hyponatremia - resume 3% hypertonic saline, add salt tabs bid Pneumonia/cough - CT without contrast done today showed mild pleural effusion, and could not rule out pneumonia. Continue rocephin and doxycycline, as well as mucinex and tessalon perles. Will also start 60 mg prednisone. 11/01/18 18:28
[2018-11-01] MEDS: ACETAMINOPHEN 500 MG TABLET PO PRN (20:15)
[2018-11-02] MEDS: SODIUM CHLORIDE 3 % 500 ML IV SCH ×2 (04:07→06:44)
[2018-11-02] MEDS: VANCOMYCIN HCL 1 GM in DEXTROSE 5 % IN WATER 250 ML IV SCH ×4 (04:23→16:11)
[2018-11-02] MEDS ORDERED: VANCOMYCIN HCL LEVEL XX ONE (06:30)
[2018-11-02] MEDS: FLECAINIDE ACETATE 100 MG TABLET PO SCH ×2 (08:10→21:13)
[2018-11-02 08:21] LABS: Hematocrit 32.8 % (42.0-52.0); Hemoglobin 10.4 gm/dL (13.5-18.0); Mean Cell Volume 89.4 fl (78-100); Mean Corpuscular Hemoglobin 28.3 pg (27-31); Mean Corpuscular Hgb Conc 31.7 g/dl (32-36); Mean Platelet Volume 9.7 fl (8-11.3); Neutrophil # 11.8 K/mm3 (1.3-6.0); Neutrophil % 85.8 % (42-75.0); Platelet Count 281 K/mm3 (150-450); Red Blood Count 3.67 M/mm3 (4.7-6.0); White Blood Count 13.7 K/mm3 (4.0-10.5)
[2018-11-02] MEDS: SODIUM CHLORIDE 1 GM TABLET PO SCH ×2 (08:24→21:13)
[2018-11-02] MEDS: FUROSEMIDE 20 MG TABLET PO SCH ×2 (08:24→09:00)
[2018-11-02] MEDS: CARVEDILOL 12.5 MG TABLET PO SCH ×2 (08:24→21:13)
[2018-11-02] MEDS: DOXYCYCLINE HYCLATE 100 MG TABLET PO SCH ×2 (08:24→21:13)
[2018-11-02] MEDS: DOCUSATE SODIUM 100 MG CAPSULE PO SCH (08:25)
[2018-11-02] MEDS: predniSONE 20 MG TABLET PO SCH (08:25)
[2018-11-02] MEDS: FOLIC ACID 1 MG TABLET PO SCH (08:25)
[2018-11-02 08:29] LABS: Anion Gap 12.3 mmol/L (6.8-13.8); BUN/Creatinine Ratio 54.5 (9.0-21.6); Calcium * 8.3 mg/dL (7.9-10.9); Carbon Dioxide 25.9 mmol/L (24-32.6); Estimated Creat Clear 85.9; Potassium 4.2 mmol/L (3.4-4.6)
[2018-11-02] MEDS: ENOXAPARIN SODIUM 40 MG/0.4 ML SYRG SC SCH (08:30)
--- NOTE | 2018-11-02 09:35 | PN ---
Progess Note - Interim Date: 11/02/18 Time: 09:21 Narrative: 11/02/18 09:21 Patient reports feeling better today. His cough was better, and he could sleep overnight. He is eating ok, but reports not having much of a BM yesterday. 11/02/18 09:22 Vitals: Temp 36.4, BP 128/80, HR 62, RR 16, 96% on room air PE: const: NAD, appears more comfortable than yesterday, Resp: No increased effort, diminished in bases, CV: HRRR, no murmur, Abd: Soft, nontender, obese, Ext: 2+ bilateral pitting edema of the feet, 1+ of ankles. Dressing over previous IV site in right foot Lines: IV in left ventral wrist A/P: A/P: MRSA bacteremia/incision infection - continue vancomycin, currently on day #3. Discussed his case yesterday with ID at [facility], who recommend higher level of care. Concern for bacterial seeding of his hardware. He has been accepted at the [facility], where his surgery was done, awaiting bed. Hyponatremia - Sodium level improved to 130. DC 3% hypertonic saline, continue salt tabs bid Pneumonia/cough - His cough finally improved today, and he was able to sleep better last night. CT without contrast done 11/01 showed mild pleural effusion, and could not rule out pneumonia. Continue rocephin and doxycycline, as well as mucinex and tessalon perles. Continue 60 mg prednisone, today is day #2. 11/02/18 09:29 11/02/18 09:30 11/02/18 09:34
[2018-11-02] MEDS: FUROSEMIDE 10 MG/ML VIAL IV ONE ×2 (10:15→11:17)
[2018-11-02] MEDS: POLYETHYLENE GLYCOL 3350 119 GM BTL PO PRN (10:16)
[2018-11-02] MEDS: ACETAMINOPHEN 500 MG TABLET PO PRN (18:36)
[2018-11-02] MEDS: ALBUTEROL SULFATE/IPRATROPIUM 3 ML NEBU IH PRN (19:42)
[2018-11-03] MEDS: ALBUTEROL SULFATE/IPRATROPIUM 3 ML NEBU IH PRN (02:05)
[2018-11-03] MEDS ORDERED: VANCOMYCIN HCL LEVEL XX ONE (04:00)
[2018-11-03] MEDS: VANCOMYCIN HCL 1 GM in DEXTROSE 5 % IN WATER 250 ML IV SCH ×4 (04:46→15:30)
[2018-11-03] MEDS: POLYETHYLENE GLYCOL 3350 119 GM BTL PO PRN (06:57)
[2018-11-03 07:42] LABS: Hematocrit 32.5 % (42.0-52.0); Hemoglobin 10.4 gm/dL (13.5-18.0); Mean Corpuscular Hemoglobin 28.8 pg (27-31); Mean Platelet Volume 8.9 fl (8-11.3); Neutrophil # 8.8 K/mm3 (1.3-6.0); Neutrophil % 81.9 % (42-75.0); Platelet Count 281 K/mm3 (150-450); Red Blood Count 3.61 M/mm3 (4.7-6.0); Red Cell Distribution Width 15.2 % (11.5-14.0); White Blood Count 10.8 K/mm3 (4.0-10.5)
[2018-11-03 07:44] LABS: Anion Gap 10.7 mmol/L (6.8-13.8); BUN/Creatinine Ratio 48.8 (9.0-21.6); Calcium * 8.3 mg/dL (7.9-10.9); Carbon Dioxide 27.4 mmol/L (24-32.6); Potassium 4.1 mmol/L (3.4-4.6)
[2018-11-03] MEDS: predniSONE 20 MG TABLET PO SCH (08:23)
[2018-11-03] MEDS: FOLIC ACID 1 MG TABLET PO SCH (08:23)
[2018-11-03] MEDS: DOCUSATE SODIUM 100 MG CAPSULE PO SCH (08:23)
[2018-11-03] MEDS: FLECAINIDE ACETATE 100 MG TABLET PO SCH (08:23)
[2018-11-03] MEDS: DOXYCYCLINE HYCLATE 100 MG TABLET PO SCH (08:23)
[2018-11-03] MEDS: FUROSEMIDE 20 MG TABLET PO SCH (08:23)
[2018-11-03] MEDS: SODIUM CHLORIDE 1 GM TABLET PO SCH (08:23)
[2018-11-03] MEDS: CARVEDILOL 12.5 MG TABLET PO SCH (08:24)
[2018-11-03] MEDS: ENOXAPARIN SODIUM 40 MG/0.4 ML SYRG SC SCH (08:35)
--- NOTE | 2018-11-03 12:04 | PN ---
Progess Note - Interim Date: 11/03/18 Time: 11:57 Narrative: 11/03/18 11:58 Patient continues to feel better than on admission. His cough was better, but still present. Hasn't had much of a BM, but denies abdominal discomfort. Still awaiting bed placement at the [facility]. Vitals: Temp 36.3, BP 128/76, HR 63, RR 14, 92% on room air PE: const: NAD, appears comfortable, Resp: No increased effort, diminished in bases, CV: HRRR, no murmur, Abd: Soft, nontender, obese, Ext: 2+ bilateral p itting edema of the feet, 1+ of ankles. Dressing over previous IV site in right foot, Skin: fresh bandage over back incision without strikethrough Lines: IV in left AC region A/P: MRSA bacteremia/incision infection - continue vancomycin, currently on day #4. Discussed his case on 11/01 with ID at [facility], who recommend higher level of care. Concern for bacterial seeding of his hardware. He has been accepted at the [facility], where his August surgery for fracture repair was done, awaiting bed. Hyponatremia - Sodium level improved yesterday to 130, and is 129 today. He received 3% hypertonic saline for approximately 48 hours, continue salt tabs bid. Urine osmolality ordered, but not resulted Pneumonia/cough - His cough finally improved after started prednisone. CT without contrast done 11/01 showed mild pleural effusion, and could not rule out pneumonia. He received 5 days of rocephin, and will complete 5 days of doxycycline tonight. Continue mucinex and tessalon perles. Continue 60 mg prednisone, today is day #3. 11/03/18 12:00
[2018-11-03 16:01] VITALS: BP 128/67
== END 2018-11-03 16:35 | disposition short-term general hospital (02) | DRG 871 ==
LOC: ER 19:42 → MS 10-29 05:16
PROVIDERS: ADMIT Family Medicine; ATTEND Family Medicine
DX: I48.0 Paroxysmal atrial fibrillation; B95.62 Methicillin resistant Staphylococcus aureus infection as the cause of diseases classified elsewhere; S32.82XD Multiple fractures of pelvis without disruption of pelvic ring, subsequent encounter for fracture with routine healing; R78.81 Bacteremia; K59.00 Constipation, unspecified; E87.1 Hypo-osmolality and hyponatremia; N17.9 Acute kidney failure, unspecified; S22.42XD Multiple fractures of ribs, left side, subsequent encounter for fracture with routine healing; R05 Cough; K81.0 Acute cholecystitis; S32.009D Unspecified fracture of unspecified lumbar vertebra, subsequent encounter for fracture with routine healing; I50.9 Heart failure, unspecified; J18.1 Lobar pneumonia, unspecified organism
CPT/HCPCS: 36410; 36415; 70030; 71020; 71046; 71250; 72157; 72158; 74019; 74020; 74177; 76705; 80048; 80053; 80202; 81001; 82150; 83605; 83690; 83935; 84145; 84484; 85025; 85652; 87040; 87077; 87081; 87186; 93005; 94640; 94664; 96365; 97110; 97116; 97162; 97530; 99285; A9576; Q9967